=== PATIENT | female | born 1975 | race Caucasian/White ===

== ENCOUNTER 2019-04-27 09:49 | Outpatient (CLI) | payer OTHER ==
[2019-04-27 10:22] LABS: ALT (SGPT) 14 U/L (8-55); AST (SGOT) 17 U/L (5-34); Albumin 4.2 g/dL (3.5-5.0); Alkaline Phosphatase 45 U/L (40-150); Anion Gap 11 mmol/L (10-20); BUN (Urea Nitrogen) 13 mg/dL (7.0-18.7); Bilirubin, Total 0.4 mg/dL (0.2-1.2); Calc. Creatinine Clearance 0 mL/min (70-130); Calcium 9.1 mg/dL (7.8-10.44); Carbon Dioxide 27 mmol/L (22-29); Cardiac Risk 3.1 (Less than 4.5); Chloride 106 mmol/L (98-107); Cholesterol 232 mg/dl (< 200 Desired); Estimated GFR-MDRD Greater than 90; Globulin 3.2 g/dL (2.4-3.5); Glucose 89 mg/dL (70-105); HDL Cholesterol 76 mg/dL (>60 Neg Risk); LDL Cholesterol, Calculated 145 mg/dL; Protein, Total 7.4 g/dL (6.0-8.3); Sodium 140 mmol/L (136-145); Triglycerides 53 mg/dL (Less than 150)
[2019-04-27 10:23] LABS: #Basophils 0.1 thou/uL (0.0-0.2); #Eosinphils 0.2 thou/uL (0.0-0.7); #Lymphocytes 1.7 thou/uL (1.20-3.40); #Monocytes 0.3 thou/uL (0.11-0.59); #Neutrophils 1.5 thou/uL (1.40-6.50); %Basophils 2.8 % (0.0-1.0); %Lymphocytes 44.9 % (21.0-51.0); %Monocytes 8.3 % (0.0-10.0); %Neutrophils 40.1 % (42.0-75.0); Hemoglobin 13.5 g/dL (12.0-16.0); Mean Corpuscular HGB CONC 32.8 g/dL (32.0-36.0); Mean Corpuscular Hemoglobin 26.7 pg (27.0-31.0); Mean Corpuscular Volume 81.5 fL (78.0-98.0); Mean Platelet Volume 11.5 fL (7.4-10.4); Platelet Count 218 thou/uL (130-400); RBC Distribution Width 12.7 % (11.5-14.5); Red Blood Cell (RBC) Count 5.07 mill/uL (4.20-5.40); White Blood Cell (WBC) Count 3.8 thou/uL (4.8-10.8)
[2019-04-27 10:43] LABS: Bilirubin Negative (Negative); Blood, Urine Negative (Negative); Glucose, Urine (Dipstick) Negative (Negative); Leukocyte Negative (Negative); Nitrite Negative (Negative); Protein, Urine (Dipstick) Negative (Neg-Trace); Urobilinogen 0.2 mg/dL (Less than 2)
--- NOTE | 2019-04-27 10:53 | RAD ---
CERVICAL SPINE 7 VIEWS: Date: 04/27/19 HISTORY: M54.12, left arm numbness and tingling for 1 month. FINDINGS: The odontoid and C1 are partially obscured on the AP open-mouth views. No malalignment. No abnormal t ranslation between flexion and extension. Very mild disc osteophytosis. IMPRESSION: Very mild disc osteophytosis. Unremarkable visualized cervical spine. Given potential radiculopathy, consider follow-up nonemergent MRI. POS: OFF
[2019-04-27 11:08] LABS: Clarity Slightly Cloudy (Clear); Thyroid Stimulating Hormone 1.3749 uIU/mL (0.35-4.94)
[2019-04-27 11:09] LABS: Bacteria/HPF 2+ HPF (None Seen); RBC/HPF 0-3 HPF (0-3); WBC/HPF 0-3 HPF (0-3)
== END 2019-04-27 09:50 | disposition home or self-care (01) ==
LOC: SCSRAD 09:49
PROVIDERS: ATTEND Family Medicine
DX: Z00.00 Encounter for general adult medical examination without abnormal findings (principal); M54.12 Radiculopathy, cervical region; M25.78 Osteophyte, vertebrae
CPT/HCPCS: 36415; 72052; 80053; 80061; 81001; 84443; 84481; 85025

== ENCOUNTER 2020-02-10 08:09 | Outpatient (CLI) | payer OTHER ==
--- NOTE | 2020-02-10 09:22 | MMO ---
Bilateral MAMMO Bilat Diag [facility]. CLINICAL HISTORY: Patient is 44 years old and is seen for diagnostic exam,lump or thickening and pain in the right breast. The patient has the following family history of breast cancer: mother; 3 maternal aunts and maternal grandmother. The patient has no personal history of cancer. The patient has a history of Breast reduction at age 25. VIEWS: The views performed were: bilateral craniocaudal with tomosynthesis; bilateral mediolateral oblique with tomosynthesis; and bilateral mediolateral with tomosynthesis. FILMS COMPARED: The present examination has been compared to prior imaging studies performed at [facility] on 02/21/2016, 09/08/2017 and 02/10/2020. This study has been interpreted with the assistance of computer-aided detection. MAMMOGRAM FINDINGS: The breasts are heterogeneously dense, which could obscure a lesion on mammography. There are benign appearing calcifications seen in both breasts. There are no suspicious masses, suspicious calcifications, or new areas of architectural distortion. IMPRESSION: THERE IS NO MAMMOGRAPHIC EVIDENCE OF MALIGNANCY. A ROUTINE FOLLOW-UP MAMMOGRAM IN 1 YEAR IS RECOMMENDED. THE RESULTS OF THIS EXAM WERE SENT TO THE PATIENT. ACR BI-RADS Category 2 - Benign finding MAMMOGRAPHY NOTE: 1. A negative mammogram report should not delay a biopsy if a dominant of clinically suspicious mass is present. 2. Approximately 10% to 15% of breast cancers are not detected by mammography. 3. Adenosis and dense breasts may obscure an underlying neoplasm. Reported by: MONISHA HEWITT MD Electonically Signed: [id number]
--- NOTE | 2020-02-10 10:32 | ULT ---
ULTRASOUND RIGHT BREAST: Date: 02/10/2020 INDICATION: Ultrasound inner lower right breast performed to assess a questioned palpable abnormality noted on ph ysical exam. There are no mammographic abnormalities. FINDINGS: The right breast is evaluated at the 7, 8, and 9 o'clock positions. No sonographic abnormality identi fied at the area of palpable concern. IMPRESSION: Ultrasound findings are BIRADS Category 1 - Negative.
== END 2020-02-10 08:10 | disposition home or self-care (01) ==
LOC: BICMAMMO 08:09
PROVIDERS: ATTEND Family Medicine
DX: N63.10 Unspecified lump in the right breast, unspecified quadrant (principal)
CPT/HCPCS: 77066; G0279